=== PATIENT | female | born 1955 | race Caucasian/White ===

== ENCOUNTER 2016-12-06 12:19 | Inpatient (IN) | payer BC, OTHER ==
--- NOTE | 2016-12-06 12:52 | ER Document Report ---
ED Medical Screen (RME) - General Stated Complaint: BACK PAIN Notes: concern for abscess 6 weeks today, was drained 2 days ago and went for check up today and was referred here for surgery eval vitals stable I have greeted and performed a rapid initial assessment of this patient. A comprehensive ED assessment and evaluation of the patient, analysis of test results and completion of the medical decision making process will be conducted by additional ED providers.
[2016-12-06] MEDS ORDERED: NORMAL SALINE 1000 ML 1,000 ML IV ONE (16:52)
--- NOTE | 2016-12-06 18:11 | ER Document Report ---
ED Skin Rash/Insect Bite/Abscs - General Chief Complaint: Boil Stated Complaint: BACK PAIN Mode of Arrival: Ambulatory Information source: Patient, Relative Notes: 61-year-old F presents to the emergency department complaining of persistent abscess/cellulitis to her mid back. Patient reports area of redness and tenderness that started as a small pimple-like area approximately 6 weeks ago which has progressed and increased in size. States was evaluated by her primary care provider Dr. Cassidy 2 days ago who performed I&D and prescribed course of doxycycline which patient states has been taking as directed. Reports had a follow-up appointment with PCP today and was subsequently referred to ED due to persistent symptoms. Reports persistent purulent drainage from area and pain/tenderness. Denies fever or any systemic symptoms. Patient reports history of high blood pressure and NIDDM II but not taking any medications because she states cannot afford them. TRAVEL OUTSIDE OF THE [place] IN LAST 30 DAYS: No - HPI Patient complains to provider of: Tender/swollen area Onset/Duration: Worse Quality of pain: Achy Severity: Moderate Pain Level: 3 Skin Character: Abscess, Erythema, Tenderness, Thickening Skin Temperature: Warm Quality of rash: Painful Similar symptoms previously: Yes Recently seen / treated by doctor: Yes - Related Data Allergies/Adverse Reactions: latex Allergy (Verified 12/06/16 12:50) Past Medical History - General Information source: Patient - Social History Smoking Status: Never Smoker Chew tobacco use (# tins/day): No Frequency of alcohol use: None Drug Abuse: None Lives with: Family Family History: Reviewed & Not Pertinent Patient has suicidal ideation: No Patient has homicidal ideation: No - Past Medical History Cardiac Medical History: Reports: Hx Hypertension Endocrine Medical History: Reports: Hx Diabetes Mellitus Type 2 Renal/ Medical History: Denies: Hx Peritoneal Dialysis Surgical Hx: Negative - Immunizations Hx Diphtheria, Pertussis, Tetanus Vaccination: Yes Review of Systems - Review of Systems Constitutional: No symptoms reported EENT: No symptoms reported Cardiovascular: No symptoms reported Respiratory: No symptoms reported Gastrointestinal: No symptoms reported Genitourinary: No symptoms reported Female Genitourinary: No symptoms reported Musculoskeletal: No symptoms reported Skin: See HPI Hematologic/Lymphatic: No symptoms reported Neurological/Psychological: No symptoms reported -: Yes All other systems reviewed and negative Physical Exam - Vital signs Vitals: Temp Pulse Resp BP Pulse Ox 97.8 F 83 20 154/78 H 97 02/03/17 12:50 12/06/16 12:50 12/06/16 12:50 12/06/16 12:50 12/06/16 12:50 Interpretation: Normal - General General appearance: Appears well, Alert In distress: None - HEENT Head: Normocephalic, Atraumatic Eyes: Normal Pupils: PERRL - Respiratory Respiratory status: No respiratory distress Chest status: Nontender Breath sounds: Normal Chest palpation: Normal - Cardiovascular Rhythm: Regular Heart sounds: Normal auscultation Murmur: No Pulses: Normal: Radial Normal capillary refill: Yes - Abdominal Inspection: Normal Distension: No distension Bowel sounds: Normal Tenderness: Nontender Organomegaly: No organomegaly - Back Back: Normal, Nontender - Extremities General upper extremity: Normal inspection, Nontender, Normal color, Normal ROM , Normal strength, Normal temperature. No: Tender, Edema General lower extremity: Normal inspection, Nontender, Normal color, Normal ROM , Normal strength, Normal temperature, Normal weight bearing. No: Tender, Edema - Neurological Neuro grossly intact: Yes Cognition: Normal Orientation: AAOx4 [place] Coma Scale Eye Opening: Spontaneous [place] Coma Scale Verbal: Oriented [place] Coma Scale Motor: Obeys Commands [place] Coma Scale Total: 15 Speech: Normal Motor strength normal: LUE, RUE, LLE, RLE Sensory: Normal - Psychological Associated symptoms: Normal affect, Normal mood - Skin Skin Temperature: Warm Skin Moisture: Dry Skin Color: Normal Skin Turgor: Elastic Skin irregularity: Abscess - approximately 5 cm diameter area of tenderness, induration, and erythema to mid back with areas of purulent drainage around center., Tender indurated area Course - Re-evaluation Re-evalutation: 12/06/16 18:40 Pt hemodynamically stable, in no distress, afebrile. Discussed patient presentation and findings with surgeon Dr. Lawrence who agrees to consult/evaluate patient in the ED and hospitalist Dr. Conley who agrees to assume care of patient and admit to inpatient medical unit due to comorbidities. Findings and plan discussed with patient and family members who verbalize understanding and agree with plan. ED physician Dr. Pratt consulted and concurs with evaluation and treatment plan. - Vital Signs Vital signs: Temp Pulse Resp BP Pulse Ox 97.8 F 83 20 154/78 H 97 12/06/16 12:50 12/06/16 12:50 12/06/16 12:50 12/06/16 12:50 12/06/16 12:50 - Laboratory Laboratory results interpreted by me: 12/06/16 16:33 POC Glucose 358 H Discharge - Discharge Clinical Impression: Abscess or cellulitis of back Condition: Stable Disposition: ADMITTED INPATIENT Admitting Provider: Hospitalist - Yael Unit Admitted: Medical Floor
[2016-12-06] MEDS ORDERED: VANCOMYCIN HCL 0 MG in DEXTROSE 5%-WATER 250 ML IV NR (18:45)
[2016-12-06] MEDS ORDERED: DEXTROSE 40% GEL 15 GM TUBE PO PRN ×2 (18:58)
[2016-12-06] MEDS ORDERED: DEXTROSE 50%-WATER 25 GM/50 ML DISP.SYRIN IV PRN ×2 (18:58)
[2016-12-06] MEDS ORDERED: GLUCAGON,HUMAN RECOMB 1 MG INJ IM PRN (18:58)
[2016-12-06] MEDS ORDERED: LIDOCAINE 1% INJ-PF (10 MG/ML) 30 ML SDV ONE (19:03)
[2016-12-06 19:24] LABS: ABSOLUTE BASOPHILS # (AUTO) 0.1 10^3/uL (0.0-0.2); ABSOLUTE EOSINOPHILS # (AUTO) 0.4 10^3/uL (0.0-0.6); ABSOLUTE LYMPHOCYTES (AUTO) 2.4 10^3/uL (0.5-4.7); ABSOLUTE MONOCYTES (AUTO) 0.5 10^3/uL (0.1-1.4); ABSOLUTE NEUT (AUTO) 5.8 10^3/uL (1.7-8.2); BASOPHILS % (AUTO) 0.8 % (0-2); EOSINOPHILS % (AUTO) 4.4 % (0-6); HEMATOCRIT 47.2 % (36.0-47.0); HEMOGLOBIN 16.2 g/dL (12.0-15.5); HGB HCT DIFFERENCE 1.4; LYMPHOCYTES % (AUTO) 25.8 % (13-45); MEAN CORPUSCULAR HEMOGLOBIN 29.2 pg (27.0-33.4); MEAN CORPUSCULAR HGB CONC 34.2 g/dL (32.0-36.0); MEAN CORPUSCULAR VOLUME 85 fl (80-97); MONOCYTES % (AUTO) 5.6 % (3-13); RED BLOOD COUNT 5.53 10^6/uL (3.72-5.28); RED CELL DISTRIBUTION WIDTH 13.5 % (11.5-14.0); SEGMENTED NEUTROPHILS % (AUTO) 63.4 % (42-78); WHITE BLOOD COUNT 9.1 10^3/uL (4.0-10.5)
--- NOTE | 2016-12-06 19:25 | PDOC CONSULTATION ---
History of Present Illness History of Present Illness: INGRIS HUTTON is a 61 year old female who noticed a rash which began 6 weeks ago. The rash began in her left antecubital fossa, her bilateral axilla, her bilateral groins, her perineum and her inframammary folds. She also noticed an area of rash in the middle of her back. The rash has continued. The rash is accompanied by itching. She has treated the rash with Gold Venegas powder and hydrocortisone ointment. Generally the rash has improved, although it does persist. Unlike the other areas of the rash, the spot on her back became worse. It became more erythematous, indurated and tender. A mass formed there. It became fluctuant. She went to her doctor 2 days ago. An I&D was performed with expression of copious amounts of purulent material. She was placed on doxycycline, but failed to improve. She still has purulent drainage from the abscess on her back. She still has a large ring of erythema, induration and tenderness. She has not treated her diabetes for 8 years since she lost her insurance. Her blood sugars usually run around 230. Her blood sugar earlier today was 358. In addition to the rash and abscess she has experienced nausea and vomiting. She also reports one week of sinus and cold symptoms. Her family also has upper respiratory illness over the last 2-3 weeks. She reports chronic bilateral lower extremity edema for which she wears compression hose. Past Medical History Cardiac Medical History: Reports: Hypertension Endocrine Medical History: Reports: Diabetes Mellitus Type 2, Other - Diabetic neuropathy Past Surgical History Past Surgical History: Reports: Appendectomy, Hysterectomy - Total hysterectomy with uterus/tubes/ovaries as well as concurrent appendectomy. Social History Information Source: Patient Lives with: Family Smoking Status: Never Smoker Frequency of Alcohol Use: None Hx Recreational Drug Use: No Drugs: None Hx Prescription Drug Abuse: No Family History Family History: CVA, DM, Hyperlipidemia, Hypertension, Malignancy - Ovarian cancer, bile duct cancer, lung cancer., Other - Denies any family or personal history of bleeding disorders, blood clots or anesthesia problems. Parental Family History Reviewed: Yes Children Family History Reviewed: Yes Sibling(s) Family History Reviewed.: Yes Medication/Allergy Allergies/Adverse Reactions: latex Allergy (Verified 12/06/16 12:50) Review of Systems All systems: reviewed and no additional remarkable complaints except as stated Physical Exam Vital Signs: Temp Pulse Resp BP Pulse Ox 97.8 F 83 20 154/78 H 97 12/06/16 12:50 12/06/16 12:50 12/06/16 12:50 12/06/16 12:50 12/06/16 12:50 Intake & Output 12/05/16 12/06/16 12/07/16 06:59 06:59 06:59 Weight 95.8 kg General appearance: PRESENT: no acute distress Head exam: PRESENT: normocephalic Eye exam: PRESENT: EOMI, other Mouth exam: PRESENT: tongue midline Neck exam: PRESENT: JVD, lymphadenopathy, tenderness, thyromegaly Respiratory exam: PRESENT: clear to auscultation zuri Cardiovascular exam: PRESENT: RRR GI/Abdominal exam: PRESENT: soft. ABSENT: distended, rebound, tenderness Extremities exam: PRESENT: +1 edema Neurological exam: PRESENT: alert, oriented to person, oriented to place, oriented to time, oriented to situation Psychiatric exam: PRESENT: appropriate affect, normal mood Skin exam: PRESENT: other - Rash with erythema in the groin folds, axilla, inframammary creases. Abscess with several centimeters of surrounding erythema, induration and tenderness. Abscess cavity itself is at least 8 cm in diameter. There is centrally a small almost healed stab incision with purulent drainage from it. Assessment & Plan - Plan Summary Plan Summary: 1. Uncontrolled diabetes. 2. Diffuse rash. 6 weeks in duration. 3. Back abscess. We discussed incision and drainage. We discussed risks benefits and alternatives including bleeding, infection, damage to surrounding structures, reaction to local anesthetic. She understands and wishes to proceed. She ate at 1 PM. She will not be able to go to the operating room until tomorrow, so this will have to be done at bedside. We will reevaluate tomorrow and see if it is responding or if we need to perform repeat I&D either at bedside or in the OR. Hopefully with antibiotics and blood sugar control and I&D we will see significant improvement.
--- NOTE | 2016-12-06 20:18 | Operative Report ---
Operative Report DATE OF SURGERY: 12/06/16 PREOPERATIVE DIAGNOSIS: Back abscess POSTOPERATIVE DIAGNOSIS: Back abscess OPERATION: Incision and drainage of back abscess SURGEON: SILAS SERRANO ANESTHESIA: Local TISSUE REMOVED OR ALTERED: Wound culture COMPLICATIONS: None noted ESTIMATED BLOOD LOSS: 20 mL INTRAOPERATIVE FINDINGS: Back abscess PROCEDURE: Time out was performed. The patient was prepped and draped in the normal sterile fashion. The skin over the abscess cavity was infiltrated with local anesthetic. A [15] blade was used to excise an ellipse of skin 1 cm in diameter. [There was return of purulent material]. The wound was probed with Q -tips and tracted 1-4 cm circumferentially. A culture was taken and sent to lab for analysis. The cavity was irrigated with hydrogen peroxide. [The cavity was further debrided with gauze]. The cavity was packed with [quarter- inch] iodoform gauze. Dressing was placed over that. Patient tolerated the procedure well. All sharps were counted for and disposed of properly. []
[2016-12-06] MEDS: OXYCODONE-ACETAMINOPHEN 5-325 MG TABLET PO PRN (21:22)
[2016-12-06 21:25] LABS: ALANINE AMINOTRANSFERASE 26 U/L (9-52); ALBUMIN 3.6 g/dL (3.5-5.0); ALKALINE PHOSPHATASE 126 U/L (38-126); ANION GAP 12 (5-19); ASPARTATE AMINO TRANSFERASE 23 U/L (14-36); BILIRUBIN,TOTAL 0.4 mg/dL (0.2-1.3); BLOOD UREA NITROGEN 15 mg/dL (7-20); CARBON DIOXIDE 27 mmol/L (22-30); CHLORIDE 101 mmol/L (98-107); GLUCOSE 268 mg/dL (75-110); SODIUM 139.5 mmol/L (137-145); TOTAL PROTEIN 6.5 g/dL (6.3-8.2)
[2016-12-06] MEDS: VANCOMYCIN HCL 1,000 MG in DEXTROSE 5%-WATER 250 ML IV SCH (23:20)
[2016-12-06] MEDS: INSULIN LISPRO 100 UNIT/ML 3 ML VIAL SUBCUT PRN (23:25)
[2016-12-07] MEDS: OXYCODONE-ACETAMINOPHEN 5-325 MG TABLET PO PRN ×4 (01:09→20:04)
[2016-12-07] MEDS ORDERED: ONDANSETRON HCL INJ/PF 4 MG/2 ML SDV ONE (03:02)
[2016-12-07] MEDS ORDERED: ONDANSETRON HCL INJ/PF 4 MG/2 ML SDV IV ONE (03:15)
[2016-12-07] MEDS: VANCOMYCIN HCL 1,000 MG in DEXTROSE 5%-WATER 250 ML IV SCH ×3 (05:27→22:10)
[2016-12-07] MEDS: INSULIN LISPRO 100 UNIT/ML 3 ML VIAL SUBCUT PRN ×3 (08:43→18:03)
[2016-12-07] MEDS ORDERED: MORPHINE SULFATE 10 MG/ML INJ IV PRN (09:36)
[2016-12-07 09:46] LABS: Direct HDL 31 mg/dL (>40); TRIGLYCERIDES 180 mg/dL (<150)
[2016-12-07 09:56] LABS: DIRECT LDL 73 mg/dL (<100)
[2016-12-07] MEDS ORDERED: METFORMIN HCL 500 MG TABLET PO SCH (10:00)
[2016-12-07] MEDS: ONDANSETRON HCL INJ/PF 4 MG/2 ML SDV IV PRN ×2 (12:45→20:06)
[2016-12-07] MEDS ORDERED: AMLODIPINE BESYLATE 5 MG TABLET PO ONE (14:30)
--- NOTE | 2016-12-07 15:08 | PDOC H&P ---
History of Present Illness Admission Date/PCP: 12/06/16 18:30 History of Present Illness: 61 year old female presents to the emergency department complaining of persistent abscess/cellulitis to her mid back. Patient reports area of redness and tenderness that started as a small pimple-like area approximately 6 weeks ago which has progressed and increased in size. States was evaluated by her primary care provider Dr. Cassidy 2 days ago who performed I&D and prescribed course of doxycycline which patient states has been taking as directed. Reports had a follow-up appointment with PCP today and was subsequently referred to ED due to persistent symptoms. Reports persistent purulent drainage from area and pain/tenderness. Denies fever or any systemic symptoms. Patient reports history of high blood pressure and NIDDM II but not taking any medications because she states cannot afford them. Upon evaluation in the ED patient was diagnosed of a large abscess in the back surrounded by cellulitis A surgical consult was obtained Patient was admitted under hospitalist service for further evaluation and care Past Medical History Cardiac Medical History: Reports: Hypertension Endocrine Medical History: Reports: Diabetes Mellitus Type 1, Diabetes Mellitus Type 2, Other - Diabetic neuropathy Psychiatric Medical History: Reports: Depression Past Surgical History Past Surgical History: Reports: Appendectomy, Hysterectomy - Total hysterectomy with uterus/tubes/ovaries as well as concurrent appendectomy. Social History Lives with: Family Smoking Status: Never Smoker Frequency of Alcohol Use: None Hx Recreational Drug Use: No Drugs: None Hx Prescription Drug Abuse: No - Advance Directive Resuscitation Status: Full Code Family History Family History: CVA, DM, Hyperlipidemia, Hypertension, Malignancy - Ovarian cancer, bile duct cancer, lung cancer., Other - Denies any family or personal history of bleeding disorders, blood clots or anesthesia problems. Parental Family History Reviewed: Yes Children Family History Reviewed: Yes Sibling(s) Family History Reviewed.: Yes Medication/Allergy Home Medications: No Home Medications 12/06/16 Allergies/Adverse Reactions: latex Allergy (Verified 12/06/16 12:50) Review of Systems Constitutional: ABSENT: chills, fever(s), headache(s), weight gain, weight loss Eyes: ABSENT: visual disturbances Ears: ABSENT: hearing changes Cardiovascular: ABSENT: chest pain, dyspnea on exertion, edema, orthropnea, palpitations Respiratory: ABSENT: cough, hemoptysis Gastrointestinal: ABSENT: abdominal pain, constipation, diarrhea, hematemesis, hematochezia, nausea, vomiting Genitourinary: ABSENT: dysuria, hematuria Musculoskeletal: PRESENT: back pain. ABSENT: joint swelling Integumentary: PRESENT: rash, other - Large abscess in the middle of her back surrounded with redness Extreme pain The abscess has been draining slightly. ABSENT: wounds Neurological: ABSENT: abnormal gait, abnormal speech, confusion, dizziness, focal weakness, syncope Psychiatric: ABSENT: anxiety, depression, homidical ideation, suicidal ideation Endocrine: ABSENT: cold intolerance, heat intolerance, polydipsia, polyuria Hematologic/Lymphatic: ABSENT: easy bleeding, easy bruising Physical Exam Vital Signs: Temp Pulse Resp BP Pulse Ox 97.7 F 79 18 178/83 H 100 12/07/16 07:42 12/07/16 07:42 12/07/16 07:42 12/07/16 07:42 12/07/16 07:42 Intake & Output 12/06/16 12/07/16 12/08/16 00:59 00:59 00:59 Intake Total 1367 Balance 1367 Weight 95 kg 95 kg General appearance: PRESENT: no acute distress, well-developed, well-nourished Head exam: PRESENT: atraumatic, normocephalic Eye exam: PRESENT: conjunctiva pink, EOMI, PERRLA. ABSENT: scleral icterus Ear exam: PRESENT: normal external ear exam Mouth exam: PRESENT: moist, tongue midline Neck exam: ABSENT: carotid bruit, JVD, lymphadenopathy, thyromegaly Respiratory exam: PRESENT: clear to auscultation zuri. ABSENT: rales, rhonchi, wheezes Cardiovascular exam: PRESENT: RRR. ABSENT: diastolic murmur, rubs, systolic murmur Pulses: PRESENT: normal dorsalis pedis pul Vascular exam: PRESENT: normal capillary refill GI/Abdominal exam: PRESENT: normal bowel sounds, soft. ABSENT: distended, guarding, mass, organolmegaly, rebound, tenderness Rectal exam: PRESENT: deferred Extremities exam: PRESENT: full ROM. ABSENT: calf tenderness, clubbing, pedal edema Neurological exam: PRESENT: alert, awake, oriented to person, oriented to place , oriented to time, oriented to situation, CN II-XII grossly intact. ABSENT: motor sensory deficit Psychiatric exam: PRESENT: appropriate affect, normal mood. ABSENT: homicidal ideation, suicidal ideation Skin exam: PRESENT: dry, intact, warm, other - Upper back large abscess about 6 cm in diameter surrounded by cellulitis it is fluctuant draining slightly extremely tender on palpation. ABSENT: cyanosis, rash Results Laboratory Results: 12/06/16 18:50 12/06/16 20:51 12/06/16 12/06/16 12/06/16 18:50 18:50 20:51 WBC 9.1 RBC 5.53 H Hgb 16.2 H Hct 47.2 H MCV 85 MCH 29.2 MCHC 34.2 RDW 13.5 Plt Count 334 Seg Neutrophils % 63.4 Lymphocytes % 25.8 Monocytes % 5.6 Eosinophils % 4.4 Basophils % 0.8 Absolute Neutrophils 5.8 Absolute Lymphocytes 2.4 Absolute Monocytes 0.5 Absolute Eosinophils 0.4 Absolute Basophils 0.1 Sodium Cancelled 139.5 Potassium Cancelled 4.0 Chloride Cancelled 101 Carbon Dioxide Cancelled 27 Anion Gap Cancelled 12 BUN Cancelled 15 Creatinine Cancelled 0.50 L Est GFR ( Amer) Cancelled > 60 Est GFR (Non-Af Amer) Cancelled > 60 Glucose Cancelled 268 H Calcium Cancelled 9.0 Total Bilirubin Cancelled 0.4 AST Cancelled 23 ALT Cancelled 26 Alkaline Phosphatase Cancelled 126 Total Protein Cancelled 6.5 Albumin Cancelled 3.6 Triglycerides Cholesterol LDL Cholesterol Direct VLDL Cholesterol HDL Cholesterol TSH 12/07/16 12/07/16 08:54 08:54 WBC RBC Hgb Hct MCV MCH MCHC RDW Plt Count Seg Neutrophils % Lymphocytes % Monocytes % Eosinophils % Basophils % Absolute Neutrophils Absolute Lymphocytes Absolute Monocytes Absolute Eosinophils Absolute Basophils Sodium Potassium Chloride Carbon Dioxide Anion Gap BUN Creatinine Est GFR ( Amer) Est GFR (Non-Af Amer) Glucose Calcium Total Bilirubin AST ALT Alkaline Phosphatase Total Protein Albumin Triglycerides 180 H Cholesterol 135.10 LDL Cholesterol Direct 73 VLDL Cholesterol 36.0 H HDL Cholesterol 31 L TSH 1.92 Assessment & Plan - Diagnosis (1) Uncontrolled diabetes mellitus Qualifiers: Diabetes mellitus type: type 2 Diabetes mellitus complication status: without complication Diabetes mellitus long term care phlebotomist insulin use: without long term care phlebotomist use Qualified Code(s): E11.65 - Type 2 diabetes mellitus with hyperglycemia Is this a current diagnosis for this admission?: YesPlan: Patient does not tolerate metformin we will initiate glipizide 5 mg daily, and order Accu-Cheks before meals at bedtime and coverage with lispro Diabetic teaching also will be requested (2) Hypertension Qualifiers: Hypertension type: essential hypertension Qualified Code(s): I10 - Essential (primary) hypertension Is this a current diagnosis for this admission?: YesPlan: Initiate treatment with Norvasc if needed (3) Abscess or cellulitis of back Is this a current diagnosis for this admission?: YesPlan: Surgical evaluation was obtained Dr. Lawrence performed an I+D in the emergency room We'll treat the patient with vancomycin assuming that she has MRSA infection - Time Time Spent: 50 to 70 Minutes
--- NOTE | 2016-12-07 15:18 | PDOC PROGRESS REPORT ---
Subjective Progress Note for:: 12/07/16 Subjective:: Patient states she's feels a little comfortable ;the pain is still quite severe ; no fever no chills Her blood sugars are in the 200 range Hemoglobin A1c was 11.2 Physical Exam Vital Signs: Temp Pulse Resp BP Pulse Ox 97.7 F 79 18 178/83 H 100 12/07/16 07:42 12/07/16 07:42 12/07/16 07:42 12/07/16 07:42 12/07/16 07:42 Intake & Output 12/06/16 12/07/16 12/08/16 00:59 00:59 00:59 Intake Total 1367 Balance 1367 Weight 95 kg 95 kg General appearance: PRESENT: no acute distress, well-developed, well-nourished Head exam: PRESENT: atraumatic, normocephalic Eye exam: PRESENT: conjunctiva pink, EOMI, PERRLA. ABSENT: scleral icterus Ear exam: PRESENT: normal external ear exam Mouth exam: PRESENT: moist, tongue midline Neck exam: ABSENT: carotid bruit, JVD, lymphadenopathy, thyromegaly Respiratory exam: PRESENT: clear to auscultation zuri. ABSENT: rales, rhonchi, wheezes Cardiovascular exam: PRESENT: RRR. ABSENT: diastolic murmur, rubs, systolic murmur Pulses: PRESENT: normal dorsalis pedis pul Vascular exam: PRESENT: normal capillary refill GI/Abdominal exam: PRESENT: normal bowel sounds, soft. ABSENT: distended, guarding, mass, organolmegaly, rebound, tenderness Rectal exam: PRESENT: deferred Extremities exam: PRESENT: full ROM. ABSENT: calf tenderness, clubbing, pedal edema Neurological exam: PRESENT: alert, awake, oriented to person, oriented to place , oriented to time, oriented to situation, CN II-XII grossly intact. ABSENT: motor sensory deficit Psychiatric exam: PRESENT: appropriate affect, normal mood. ABSENT: homicidal ideation, suicidal ideation Skin exam: PRESENT: warm, other - Abscess containing packing it is not draining There is still significant area of cellulitis surrounding abscess ; skin warm to touch and red Results Laboratory Results: 12/06/16 18:50 12/06/16 20:51 12/06/16 12/06/16 12/06/16 18:50 18:50 20:51 WBC 9.1 RBC 5.53 H Hgb 16.2 H Hct 47.2 H MCV 85 MCH 29.2 MCHC 34.2 RDW 13.5 Plt Count 334 Seg Neutrophils % 63.4 Lymphocytes % 25.8 Monocytes % 5.6 Eosinophils % 4.4 Basophils % 0.8 Absolute Neutrophils 5.8 Absolute Lymphocytes 2.4 Absolute Monocytes 0.5 Absolute Eosinophils 0.4 Absolute Basophils 0.1 Sodium Cancelled 139.5 Potassium Cancelled 4.0 Chloride Cancelled 101 Carbon Dioxide Cancelled 27 Anion Gap Cancelled 12 BUN Cancelled 15 Creatinine Cancelled 0.50 L Est GFR ( Amer) Cancelled > 60 Est GFR (Non-Af Amer) Cancelled > 60 Glucose Cancelled 268 H Calcium Cancelled 9.0 Total Bilirubin Cancelled 0.4 AST Cancelled 23 ALT Cancelled 26 Alkaline Phosphatase Cancelled 126 Total Protein Cancelled 6.5 Albumin Cancelled 3.6 Triglycerides Cholesterol LDL Cholesterol Direct VLDL Cholesterol HDL Cholesterol TSH 12/07/16 12/07/16 08:54 08:54 WBC RBC Hgb Hct MCV MCH MCHC RDW Plt Count Seg Neutrophils % Lymphocytes % Monocytes % Eosinophils % Basophils % Absolute Neutrophils Absolute Lymphocytes Absolute Monocytes Absolute Eosinophils Absolute Basophils Sodium Potassium Chloride Carbon Dioxide Anion Gap BUN Creatinine Est GFR ( Amer) Est GFR (Non-Af Amer) Glucose Calcium Total Bilirubin AST ALT Alkaline Phosphatase Total Protein Albumin Triglycerides 180 H Cholesterol 135.10 LDL Cholesterol Direct 73 VLDL Cholesterol 36.0 H HDL Cholesterol 31 L TSH 1.92 12/06/16 20:05 Gram Stain - Preliminary Back Wound Culture - Preliminary Gram Positive Cocci Clusters Assessment & Plan - Diagnosis (1) Uncontrolled diabetes mellitus Qualifiers: Diabetes mellitus type: type 2 Diabetes mellitus complication status: without complication Diabetes mellitus intermediate frame tender insulin use: without fdc use Qualified Code(s): E11.65 - Type 2 diabetes mellitus with hyperglycemia Is this a current diagnosis for this admission?: YesPlan: We will initiate glipizide. Patient states she is she cannot tolerate metformin Continue lispro coverage Diabetes education Hemoglobin A1c was 11.2 (2) Hypertension Qualifiers: Hypertension type: essential hypertension Qualified Code(s): I10 - Essential (primary) hypertension Is this a current diagnosis for this admission?: YesPlan: Initiate Norvasc 5 mg daily (3) Abscess or cellulitis of back Is this a current diagnosis for this admission?: YesPlan: Continue vancomycin ; we will add ertapenem to broaden the spectrum - Time Time Spent with patient: May consider discharging the patient tomorrow if the cellulitis has resolved; with follow-up at surgical clinic Time Spent with patient: 25-34 minutes
[2016-12-07] MEDS: METOCLOPRAMIDE HCL INJ/PF 10 MG/2 ML SDV IV PRN (16:43)
[2016-12-07] MEDS: GLIPIZIDE 5 MG TABLET PO SCH (16:43)
[2016-12-07] MEDS: ERTAPENEM SODIUM 1 GM in NORMAL SALINE 50 ML IV SCH (18:02)
--- NOTE | 2016-12-07 21:43 | PDOC PROGRESS REPORT ---
Subjective Subjective:: I saw the patient in the morning and later in the evening. Wound has improved significantly. In the morning cleared her for diet since she will not need to proceed to the OR for further debridement. She reports the wound has decreased in pain and overall she feels better. Physical Exam Vital Signs: Temp Pulse Resp BP Pulse Ox 97.6 F 80 15 166/80 H 100 12/07/16 20:00 12/07/16 20:00 12/07/16 20:00 12/07/16 20:00 12/07/16 20:00 Intake & Output 12/06/16 12/07/16 12/08/16 06:59 06:59 06:59 Intake Total 900 1797 Balance 900 1797 Weight 95 kg General appearance: PRESENT: no acute distress Eye exam: PRESENT: EOMI, other - Glasses Mouth exam: PRESENT: tongue midline Respiratory exam: PRESENT: unlabored Skin exam: PRESENT: other - Dressing is removed. The wound is still large but has decreased in induration, erythema and tenderness. There is no obvious purulent drainage. Redressed. Results Laboratory Results: 12/06/16 18:50 12/06/16 20:51 12/07/16 12/07/16 08:54 08:54 Triglycerides 180 H Cholesterol 135.10 LDL Cholesterol Direct 73 VLDL Cholesterol 36.0 H HDL Cholesterol 31 L TSH 1.92 Assessment & Plan - Diagnosis (1) Abscess or cellulitis of back Is this a current diagnosis for this admission?: YesPlan: Definite improvement. Continue daily wound care. No need for further I&D or debridement at this point. Preliminary cultures show gram-positive cocci in clusters. MRSA is suspected based on characteristics of the abscess and wound at the time of I&D. Patient is on vancomycin.
[2016-12-08] MEDS: OXYCODONE-ACETAMINOPHEN 5-325 MG TABLET PO PRN ×4 (06:28→20:56)
[2016-12-08] MEDS: VANCOMYCIN HCL 1,000 MG in DEXTROSE 5%-WATER 250 ML IV SCH (06:29)
[2016-12-08 06:49] LABS: CREATININE RESULT 0.51 mg/dL (0.52-1.25)
[2016-12-08] MEDS: INSULIN LISPRO 100 UNIT/ML 3 ML VIAL SUBCUT PRN ×3 (07:34→17:46)
[2016-12-08] MEDS: GLIPIZIDE 5 MG TABLET PO SCH (07:34)
[2016-12-08] MEDS: METOCLOPRAMIDE HCL INJ/PF 10 MG/2 ML SDV IV PRN ×3 (07:39→21:47)
[2016-12-08] MEDS: ONDANSETRON HCL INJ/PF 4 MG/2 ML SDV IV PRN ×3 (07:40→21:38)
[2016-12-08] MEDS: AMLODIPINE BESYLATE 5 MG TABLET PO SCH (09:47)
[2016-12-08] MEDS ORDERED: FLUCONAZOLE 100 MG TABLET PO ONE (11:00)
[2016-12-08] MEDS ORDERED: NYSTATIN TOPICAL POWDER 15 GM TP ONE (11:00)
[2016-12-08 14:09] LABS: CREATININE RESULT 0.56 mg/dL (0.52-1.25)
--- NOTE | 2016-12-08 14:39 | PDOC PROGRESS REPORT ---
Subjective Progress Note for:: 12/08/16 Subjective:: Patient is still in a great deal of pain and redness swelling still persistent around the abscess in her back Identification and sensitivity of the gram-positive is not available yet Patient is still on vancomycin and ertapenem IV Her blood sugars are quite elevated above 200 And her hemoglobin A1c is 11.4 Physical Exam Vital Signs: Temp Pulse Resp BP Pulse Ox 97.8 F 79 16 150/77 H 100 12/08/16 11:45 12/08/16 11:45 12/08/16 11:45 12/08/16 11:45 12/08/16 11:45 Intake & Output 12/07/16 12/08/16 12/09/16 00:59 00:59 00:59 Intake Total 2697 1420 Balance 2697 1420 Weight 95 kg 95 kg 95 kg General appearance: PRESENT: no acute distress, well-developed, well-nourished Head exam: PRESENT: atraumatic, normocephalic Eye exam: PRESENT: conjunctiva pink, EOMI, PERRLA. ABSENT: scleral icterus Ear exam: PRESENT: normal external ear exam Mouth exam: PRESENT: moist, tongue midline Neck exam: ABSENT: carotid bruit, JVD, lymphadenopathy, thyromegaly Respiratory exam: PRESENT: clear to auscultation zuri. ABSENT: rales, rhonchi, wheezes Cardiovascular exam: PRESENT: RRR. ABSENT: diastolic murmur, rubs, systolic murmur Pulses: PRESENT: normal dorsalis pedis pul Vascular exam: PRESENT: normal capillary refill GI/Abdominal exam: PRESENT: normal bowel sounds, soft. ABSENT: distended, guarding, mass, organolmegaly, rebound, tenderness Rectal exam: PRESENT: deferred Extremities exam: PRESENT: full ROM. ABSENT: calf tenderness, clubbing, pedal edema Neurological exam: PRESENT: alert, awake, oriented to person, oriented to place , oriented to time, oriented to situation, CN II-XII grossly intact. ABSENT: motor sensory deficit Psychiatric exam: PRESENT: appropriate affect, normal mood. ABSENT: homicidal ideation, suicidal ideation Skin exam: PRESENT: dry, intact, warm, other - Back: Abscess is visualized, packed No drainage Cellulitis surrounding the abscess is still present about 6- 8 cm in diameter Extreme tenderness on palpation. 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 Qualified Code(s): E11.65 - Type 2 diabetes mellitus with hyperglycemia Is this a current diagnosis for this admission?: YesPlan: Initiated glipizide by mouth we will increase it to 10 mg twice a day Patient will need some Lantus insulin to control her blood sugars are we will initiate Lantus tonight 20 units subcutaneous at bedtime Initiate diabetic teaching and self administration of insulin (2) Hypertension Qualifiers: Hypertension type: essential hypertension Qualified Code(s): I10 - Essential (primary) hypertension Is this a current diagnosis for this admission?: YesPlan: Still quite elevated Will add Diovan 80 mg daily (3) Abscess or cellulitis of back Is this a current diagnosis for this admission?: Yes - Time Time Spent with patient: Continue the present management Diabetic teaching Self administration of insulin Patient may be discharged in 24-48 hrs if there is clinical improvement Time Spent with patient: 25-34 minutes
--- NOTE | 2016-12-08 14:57 | PDOC PROGRESS REPORT ---
Subjective Subjective:: Reports wound continues to slowly improve. Physical Exam Vital Signs: Temp Pulse Resp BP Pulse Ox 97.8 F 79 16 150/77 H 100 12/08/16 11:45 12/08/16 11:45 12/08/16 11:45 12/08/16 11:45 12/08/16 11:45 Intake & Output 12/07/16 12/08/16 12/09/16 06:59 06:59 06:59 Intake Total 900 2517 1200 Balance 900 2517 1200 Weight 95 kg 95 kg General appearance: PRESENT: no acute distress Eye exam: PRESENT: EOMI, other - Glasses Mouth exam: PRESENT: tongue midline Neurological exam: PRESENT: alert, oriented to situation Psychiatric exam: PRESENT: appropriate affect, normal mood Skin exam: PRESENT: other - Abscess on back has decreased in swelling, erythema and induration. Less tender until wound cares performed, then is painful. Wound Care: Old dressing and packing is removed. The wound is probed with hydrogen peroxide Q-tips. The wound is packed with quarter-inch iodoform gauze. New dressing is placed. Results Laboratory Results: 12/06/16 18:50 12/08/16 13:35 12/08/16 12/08/16 06:05 13:35 Creatinine 0.51 L 0.56 Est GFR ( Amer) > 60 > 60 Est GFR (Non-Af Amer) > 60 > 60 12/06/16 20:05 Back Gram Stain - Final Assessment & Plan - Diagnosis (1) Abscess or cellulitis of back Is this a current diagnosis for this admission?: YesPlan: Healing, but slowly. Continue daily wound care. Continue IV antibiotics per medicine. Spoke with medicine, agree with diabetes control and teaching.
[2016-12-08] MEDS ORDERED: GLIPIZIDE 5 MG TABLET PO SCH (15:00)
[2016-12-08] MEDS: VANCOMYCIN HCL 1,250 MG in DEXTROSE 5%-WATER 250 ML IV SCH ×2 (15:00→21:41)
[2016-12-08] MEDS: GLIPIZIDE 10 MG TABLET PO SCH (17:30)
[2016-12-08] MEDS: ERTAPENEM SODIUM 1 GM in NORMAL SALINE 50 ML IV SCH (17:47)
[2016-12-08] MEDS: NYSTATIN TOPICAL POWDER 15 GM TP SCH (17:49)
[2016-12-08] MEDS: INSULIN GLARGINE,HUM.REC.ANLOG 300 UNIT/3 ML INSULN.PEN SUBCUT SCH (21:36)
[2016-12-08] MEDS ORDERED: INSULIN GLARGINE,HUM.REC.ANLOG 1,000 UNIT/10 ML UNIT SUBCUT SCH (22:00)
[2016-12-09] MEDS: METOCLOPRAMIDE HCL INJ/PF 10 MG/2 ML SDV IV PRN ×2 (06:21→22:35)
[2016-12-09] MEDS: ONDANSETRON HCL INJ/PF 4 MG/2 ML SDV IV PRN ×2 (06:24→22:37)
[2016-12-09] MEDS: VANCOMYCIN HCL 1,250 MG in DEXTROSE 5%-WATER 250 ML IV SCH (06:26)
--- NOTE | 2016-12-09 10:08 | PDOC PROGRESS REPORT ---
Subjective Progress Note for:: 12/09/16 Subjective:: Patient still having pain around debridement site Physical Exam Vital Signs: Temp Pulse Resp BP Pulse Ox 97.7 F 73 16 159/72 H 99 12/09/16 00:18 12/09/16 00:18 12/09/16 00:18 12/09/16 00:18 12/09/16 00:18 Intake & Output 12/08/16 12/09/16 12/10/16 06:59 06:59 06:59 Intake Total 2517 2330 Balance 2517 2330 Weight 95 kg 95 kg General appearance: PRESENT: mild distress Torso Front/Back Image: 1 - The operative debridement site is inspected; packing removed; purulent discharge persisted; perimeter skin very indurated thickened consistent with undrained infection Results Laboratory Results: 12/06/16 18:50 12/08/16 13:35 12/08/16 13:35 Creatinine 0.56 Est GFR ( Amer) > 60 Est GFR (Non-Af Amer) > 60 12/06/16 20:05 Back Gram Stain - Final Assessment & Plan - Diagnosis (1) Abscess or cellulitis of back Is this a current diagnosis for this admission?: YesPlan: 1. Patient has unresolved soft tissue infection of the upper back despite liter debridements. She needs more aggressive minutes and this can be performed in the operating room under LMAC anesthesia 2. We have kept her nothing by mouth, and plan to perform the service later today. - Time Time Spent with patient: 15-24 minutes
[2016-12-09] MEDS: NYSTATIN TOPICAL POWDER 15 GM TP SCH ×2 (11:01→17:13)
[2016-12-09] MEDS: AMLODIPINE BESYLATE 5 MG TABLET PO SCH (11:02)
[2016-12-09] MEDS: VALSARTAN 80 MG TABLET PO SCH (11:04)
[2016-12-09] MEDS: FLUCONAZOLE 100 MG TABLET PO SCH (11:04)
[2016-12-09] MEDS: OXYCODONE-ACETAMINOPHEN 5-325 MG TABLET PO PRN ×3 (11:05→20:09)
[2016-12-09] MEDS: GLIPIZIDE 10 MG TABLET PO SCH ×2 (11:05→15:25)
[2016-12-09] MEDS ORDERED: LIDOCAINE 1% INJ-PF (10 MG/ML) 30 ML SDV ONE (14:06)
[2016-12-09] MEDS: NAFCILLIN SODIUM 1 GM in DEXTROSE 5%-WATER 50 ML IV SCH ×3 (15:02→22:36)
[2016-12-09] MEDS ORDERED: PROPOFOL INJ 200 MG/20 ML VIAL IV ONE (17:14)
[2016-12-09] MEDS ORDERED: DEXMEDETOMIDINE INJ 80 MCG/20 ML VIAL IV ONE (17:14)
[2016-12-09] MEDS ORDERED: FENTANYL CITRATE INJ/PF 100 MCG/2 ML AMPUL ONE (17:14)
[2016-12-09] MEDS ORDERED: MIDAZOLAM 2 MG/2 ML INJ ONE ×2 (17:14)
--- NOTE | 2016-12-09 18:03 | Operative Report ---
Nonrecallable Operative Report DATE OF SURGERY: 12/09/16 PREOPERATIVE DIAGNOSIS: Deep soft tissue abscess of the back POSTOPERATIVE DIAGNOSIS: Same OPERATION: Decisional debridement of skin, subcutaneous tissue and fascia of the back with irrigation of abscess cavity, and placement of Jw drain SURGEON: KRISTOPHER BRIAN ANESTHESIA: LMAC TISSUE REMOVED OR ALTERED: Nonviable skin and subcutaneous tissue COMPLICATIONS: None ESTIMATED BLOOD LOSS: scant INTRAOPERATIVE FINDINGS: see below PROCEDURE: Patient taken to the operating room where LMAC anesthesia was induced. She was placed in the right side down left side up position lateral decubitus on the beanbag. Left upper and mid back prepped and draped sterile fashion. Surgical plan and surgical timeout conducted. Findings were significant for previously drained abscess just to the left of midline in the infrascapular region. There was a hole approximate size of a quarter. Adjacent to this hole bilaterally were 2 near incisions vertically oriented. The tissue was anesthetized with quarter percent Marcaine. After adequate anesthesia was induced, I cored out the old all the way to the deep subcutaneous tissue, and connected it with the patient's right lateral vertically oriented incision. This created a hole approximately 4 cm in diameter, and its depth extended all the way to the fascia of the back. The left lateral incision was opened further with Clarisa clamps and a Jw drain looped through and tied in a square knot to maintain patency of this original counterincision. Loculations in the deep subcutaneous tissues were broken up. This was a deep complex infection involving degeneration of the subcutaneous tissue resembling MRSA ; the wound was irrigated with peroxide and saline, and packed with gauze wrap. 4 x 4's and tape applied. Postop procedure well taken recovery in stable condition; Miguelina dictating on April Ambriz
--- NOTE | 2016-12-09 18:04 | EKG REPORT ---
SEVERITY:- ABNORMAL ECG - SINUS RHYTHM PROBABLE LEFT ATRIAL ABNORMALITY PROBABLE LEFT VENTRICULAR HYPERTROPHY : Confirmed by: Contreras Coulter MD 09-Dec-2016 18:03:36
[2016-12-09] MEDS ORDERED: MORPHINE SULFATE 10 MG/ML INJ IV PRN (18:41)
[2016-12-09] MEDS ORDERED: FENTANYL CITRATE INJ/PF 100 MCG/2 ML AMPUL IV PRN ×3 (18:41)
--- NOTE | 2016-12-09 19:48 | PDOC PROGRESS REPORT ---
Subjective Progress Note for:: 12/09/16 Subjective:: Patient is still in a great deal of pain and redness swelling still persistent around the abscess in her back Patient was evaluated by Dr Mcintyre and was scheduled for drainage abscess in the OR 12/06/16 20:05 Gram Stain - Final Back Wound Culture - Final Staphylococcus Aureus No Anaerobic Organisms Culture grew MSSA sensitive to Oxacillin Physical Exam Vital Signs: Temp Pulse Resp BP Pulse Ox 97.3 F 64 16 130/63 H 99 12/09/16 18:50 12/09/16 18:50 12/09/16 18:50 12/09/16 18:50 12/09/16 18:50 Intake & Output 12/08/16 12/09/16 12/10/16 00:59 00:59 00:59 Intake Total 2697 2320 1770 Output Total 5 Balance 2697 2320 1765 Weight 95 kg 95 kg 95 kg General appearance: PRESENT: no acute distress, well-developed, well-nourished Head exam: PRESENT: atraumatic, normocephalic Eye exam: PRESENT: conjunctiva pink, EOMI, PERRLA. ABSENT: scleral icterus Ear exam: PRESENT: normal external ear exam Mouth exam: PRESENT: moist, tongue midline Neck exam: ABSENT: carotid bruit, JVD, lymphadenopathy, thyromegaly Respiratory exam: PRESENT: clear to auscultation zuri. ABSENT: rales, rhonchi, wheezes Cardiovascular exam: PRESENT: RRR. ABSENT: diastolic murmur, rubs, systolic murmur Pulses: PRESENT: normal dorsalis pedis pul Vascular exam: PRESENT: normal capillary refill GI/Abdominal exam: PRESENT: normal bowel sounds, soft. ABSENT: distended, guarding, mass, organolmegaly, rebound, tenderness Rectal exam: PRESENT: deferred Extremities exam: PRESENT: full ROM. ABSENT: calf tenderness, clubbing, pedal edema Neurological exam: PRESENT: alert, awake, oriented to person, oriented to place , oriented to time, oriented to situation, CN II-XII grossly intact. ABSENT: motor sensory deficit Psychiatric exam: PRESENT: appropriate affect, normal mood. ABSENT: homicidal ideation, suicidal ideation Skin exam: PRESENT: dry, warm, other - back large abscess surrounded by erythema is persistent and tender to palpation. 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 Qualified Code(s): E11.65 - Type 2 diabetes mellitus with hyperglycemia Is this a current diagnosis for this admission?: YesPlan: initiated Lantus continue Diabetic teaching (2) Hypertension Qualifiers: Hypertension type: essential hypertension Qualified Code(s): I10 - Essential (primary) hypertension Is this a current diagnosis for this admission?: YesPlan: continue valsartan and amlodipine BP better controlled (3) Abscess or cellulitis of back Is this a current diagnosis for this admission?: YesPlan: continue Nafcillin IV management as per surgery - Time Time Spent with patient: 15-24 minutes
[2016-12-09] MEDS: INSULIN GLARGINE,HUM.REC.ANLOG 300 UNIT/3 ML INSULN.PEN SUBCUT SCH (22:11)
[2016-12-10] MEDS: KETOROLAC TROMETHAMINE INJ/PF 30 MG/1 ML SDV IV PRN ×4 (00:05→23:06)
[2016-12-10] MEDS: NAFCILLIN SODIUM 1 GM in DEXTROSE 5%-WATER 50 ML IV SCH ×6 (03:05→22:23)
[2016-12-10] MEDS: FLUCONAZOLE 100 MG TABLET PO SCH (09:53)
[2016-12-10] MEDS: AMLODIPINE BESYLATE 5 MG TABLET PO SCH (09:53)
[2016-12-10] MEDS: VALSARTAN 80 MG TABLET PO SCH (09:53)
[2016-12-10] MEDS: OXYCODONE-ACETAMINOPHEN 5-325 MG TABLET PO PRN (09:54)
[2016-12-10] MEDS: GLIPIZIDE 10 MG TABLET PO SCH ×2 (09:54→17:08)
--- NOTE | 2016-12-10 12:37 | PDOC PROGRESS REPORT ---
Subjective Progress Note for:: 12/10/16 Subjective:: She feels much better. Physical Exam Vital Signs: Temp Pulse Resp BP Pulse Ox 97.7 F 75 16 134/60 H 100 12/10/16 03:03 12/10/16 03:03 12/10/16 03:03 12/10/16 03:03 12/10/16 03:03 Intake & Output 12/09/16 12/10/16 12/11/16 06:59 06:59 06:59 Intake Total 2330 1580 Output Total 5 Balance 2330 1575 Weight 95 kg 95 kg General appearance: PRESENT: no acute distress Skin exam: PRESENT: other - Back wound examined; drain in place; cavity with some blood. Perimeter skin erythematous but no purulent discharge. Results Laboratory Results: 12/06/16 18:50 12/08/16 13:35 12/06/16 20:05 Back Gram Stain - Final 12/06/16 20:05 Back Wound Culture - Final Staphylococcus Aureus No Anaerobic Organisms 12/09/16 13:50 Creatine Kinase 41 Assessment & Plan - Diagnosis (1) Abscess or cellulitis of back Is this a current diagnosis for this admission?: YesPlan: 1. Continue intravenous antibiotics today 2. I believe patient can be discharged home tomorrow on dressing changes, [facility] with [facility] for management and dressing changes. Further consultation with surgery on prn Basis
[2016-12-10] MEDS: ONDANSETRON HCL INJ/PF 4 MG/2 ML SDV IV PRN (12:54)
[2016-12-10] MEDS: INSULIN LISPRO 100 UNIT/ML 3 ML VIAL SUBCUT PRN (13:11)
[2016-12-10] MEDS: NYSTATIN TOPICAL POWDER 15 GM TP SCH ×2 (14:33→17:08)
--- NOTE | 2016-12-10 17:16 | PDOC PROGRESS REPORT ---
Subjective Progress Note for:: 12/10/16 Subjective:: Reason for visit: Follow-up MSSA abscess Hospital course: Per H&P "61 year old female presents to the emergency department complaining of persistent abscess/cellulitis to her mid back. Patient reports area of redness and tenderness that started as a small pimple- like area approximately 6 weeks ago which has progressed and increased in size. States was evaluated by her primary care provider Dr. Cassidy 2 days ago who performed I&D and prescribed course of doxycycline which patient states has been taking as directed. Reports had a follow-up appointment with PCP today and was subsequently referred to ED due to persistent symptoms. Reports persistent purulent drainage from area and pain/tenderness. Denies fever or any systemic symptoms. Patient reports history of high blood pressure and NIDDM II but not taking any medications because she states cannot afford them. Upon evaluation in the ED patient was diagnosed of a large abscess in the back surrounded by cellulitis A surgical consult was obtained Patient was admitted under hospitalist service for further evaluation and care" Patient has since undergone surgical incision and drainage of the wound with packing and drain remaining in place. Surgery continues to follow and case discussed with him this morning. He is recommending continued wound care and outpatient wound care after discharge. Subjective: Patient continues to report sharp stabbing waxing and waning pain from the "hole in my back" and is nonradiating and worsened with palpation and dressing changes and improved with rest and narcotics. She denies associated fevers and chills, nausea and vomiting and she is having no diarrhea from the use of the antibiotics. She seems to be tolerating the antibiotics without difficulty. ROS: per HPI plus a total of 10 systems reviewed, pertinent positives and negatives noted above, remaining systems negative. Physical Exam Vital Signs: Temp Pulse Resp BP Pulse Ox 97.7 F 75 16 134/60 H 100 12/10/16 03:03 12/10/16 03:03 12/10/16 03:03 12/10/16 03:03 12/10/16 03:03 Intake & Output 12/09/16 12/10/16 12/11/16 06:59 06:59 06:59 Intake Total 2330 1580 2899 Output Total 5 Balance 2330 1575 2899 Weight 95 kg 95 kg EXAM GENERAL: NAD; well developed, well nourished; no obese; alert and oriented to person, place, time, situation HEENT: normocephalic, atraumatic; no conjunctival injection, no scleral icterus ; oral mucosa moist; RESPIRATORY: no accessory muscle use, no increased WOB, good air entry bilaterally; no wheezes, rales, rhonchi; no inspiratory crackles CARDIO: no JVD; RRR; no systolic murmur; no tachycardia GI: soft; nondistended; normal bowel sounds; no hepato spleno megaly; no rebound, rigidity, guarding VASCULAR: no carotid bruit; no abdominal bruit; no pallor; 2+ radial, DP pulse ; normal capillary refill EXTREMITIES: no calf tender; no palpable cords in calf; no clubbing, cyanosis , pedal edema PSYCH: normal affect, normal mood SKIN: warm; moist; no petechiae; no telengectasias; no jaundice; 2-1/2 cm hole in the left back with plastic drain in place and serosanguineous drainage, there is a reading of induration and erythema around the wound but is well circumscribed and seems contained to the local area. Results Laboratory Results: 12/06/16 18:50 12/08/16 13:35 12/09/16 13:50 Creatine Kinase 41 Imported from system, no new labs to review. Status: Imported from PACS Assessment & Plan - Diagnosis (1) Abscess or cellulitis of back Is this a current diagnosis for this admission?: YesPlan: Continue nafcillin for now, anticipate changed to Amoxil in the morning and hoping for discharge home barring any new events overnight. Case discussed with surgery, he agrees with treatment plan. Is recommending outpatient wound care. (2) Hypertension Qualifiers: Hypertension type: essential hypertension Qualified Code(s): I10 - Essential (primary) hypertension Is this a current diagnosis for this admission?: YesPlan: Reasonably well controlled. Continue current regimen. (3) Uncontrolled diabetes mellitus Qualifiers: Diabetes mellitus type: type 2 Diabetes mellitus complication status: without complication Diabetes mellitus buttermaker helper insulin use: without buttermaker helper use Qualified Code(s): E11.65 - Type 2 diabetes mellitus with hyperglycemia Is this a current diagnosis for this admission?: YesPlan: Blood sugar slightly elevated and worsened by infection but overall trend is less than 200, continue current treatment. - Time Time Spent with patient: 25-34 minutes - Plan Summary Plan Summary: Anticipate discharge home in the morning.
[2016-12-10] MEDS: INSULIN GLARGINE,HUM.REC.ANLOG 300 UNIT/3 ML INSULN.PEN SUBCUT SCH (22:27)
[2016-12-11] MEDS: NAFCILLIN SODIUM 1 GM in DEXTROSE 5%-WATER 50 ML IV SCH ×3 (02:16→10:15)
[2016-12-11] MEDS: KETOROLAC TROMETHAMINE INJ/PF 30 MG/1 ML SDV IV PRN (05:45)
[2016-12-11] MEDS: GLIPIZIDE 10 MG TABLET PO SCH (10:09)
[2016-12-11] MEDS: FLUCONAZOLE 100 MG TABLET PO SCH (10:09)
[2016-12-11] MEDS: VALSARTAN 80 MG TABLET PO SCH (10:10)
[2016-12-11] MEDS: AMLODIPINE BESYLATE 5 MG TABLET PO SCH (10:10)
[2016-12-11] MEDS: NYSTATIN TOPICAL POWDER 15 GM TP SCH (10:15)
[2016-12-11 11:58] VITALS: BP 159/84
--- NOTE | 2016-12-11 18:12 | PDOC DISCHARGE SUMMARY ---
General - Admit/Disc Date/PCP Admission Date/Primary Care Provider: 12/06/16 18:30 Discharge Date: 12/11/16 - Discharge Diagnosis (1) Abscess or cellulitis of back Is this a current diagnosis for this admission?: YesSummary: Okay to continue doxycycline that was previously prescribed prior to her admission of the hospital based on the sensitivities from the culture. She is to follow up with outpatient wound clinic and continue dressing changes at least daily or as the bandage become saturated. Allow the drain to fall out on its own and do not replace or pack the wound, do not cover with any salves or creams. (2) Hypertension Is this a current diagnosis for this admission?: YesSummary: Continue inpatient regimen. Prescriptions provided. (3) Uncontrolled diabetes mellitus Is this a current diagnosis for this admission?: YesSummary: Continue inpatient regimen. Prescriptions provided. - Additional Information Resuscitation Status: Full Code Discharge Diet: Diabetic Discharge Activity: Activity As Tolerated, Balance Activity w/Rest, Slowly Increase Activity Home Medications: Amlodipine Besylate [Norvasc 5 mg Tablet] 5 mg PO DAILY #30 tablet 12/11/16 Doxycycline Hyclate 100 mg PO BID #30 capsule 12/11/16 Fluconazole [Diflucan 100 mg Tablet] 200 mg PO DAILY #14 tablet 12/11/16 Glipizide [Glucotrol 10 mg Tablet] 10 mg PO BIDACBS #60 tablet 12/11/16 Insulin Glargine,Hum.rec.anlog [Lantus Insulin 100 Unit/mL] 20 unit SUBCUT QHS # 1 insuln.pen 12/11/16 Ketorolac Tromethamine [Toradol 10 mg Tablet] 10 mg PO Q6HP PRN #12 tablet 12/11 Tramadol HCl 50 mg PO TIDP PRN #20 tablet 12/11/16 Valsartan [Diovan 80 mg Tablet] 80 mg PO DAILY #30 tablet 12/11/16 History of Present Illness Patient complains of: Pain and swelling in her back History of Present Illness: Hospital course: Per H&P "61 year old female presents to the emergency department complaining of persistent abscess/cellulitis to her mid back. Patient reports area of redness and tenderness that started as a small pimple- like area approximately 6 weeks ago which has progressed and increased in size. States was evaluated by her primary care provider Dr. Cassidy 2 days ago who performed I&D and prescribed course of doxycycline which patient states has been taking as directed. Reports had a follow-up appointment with PCP today and was subsequently referred to ED due to persistent symptoms. Hospital Course Hospital Course: Reports had a follow-up appointment with PCP today and was subsequently referred to ED due to persistent symptoms. Reports persistent purulent drainage from area and pain/tenderness. Denies fever or any systemic symptoms. Patient reports history of high blood pressure and NIDDM II but not taking any medications because she states cannot afford them. Upon evaluation in the ED patient was diagnosed of a large abscess in the back surrounded by cellulitis A surgical consult was obtained Patient was admitted under hospitalist service for further evaluation and care" Patient has since undergone surgical incision and drainage of the wound with packing and drain remaining in place. Surgery continues to follow and case discussed with him this morning. He is recommending continued wound care and outpatient wound care after discharge. Physical Exam Vital Signs: Temp Pulse Resp BP Pulse Ox 97.7 F 75 20 159/84 H 100 12/11/16 11:52 12/11/16 11:52 12/11/16 11:52 12/11/16 11:52 12/11/16 11:52 Intake & Output 12/10/16 12/11/16 12/12/16 06:59 06:59 06:59 Intake Total 1580 3699 Output Total 5 Balance 1575 3699 Weight 95 kg 93.5 kg EXAM GENERAL: NAD; well developed, well nourished; no obese; alert and oriented to person, place, time, situation HEENT: normocephalic, atraumatic; no conjunctival injection, no scleral icterus ; oral mucosa moist; RESPIRATORY: no accessory muscle use, no increased WOB, good air entry bilaterally; no wheezes, rales, rhonchi; no inspiratory crackles CARDIO: no JVD; RRR; no systolic murmur; no tachycardia GI: soft; nondistended; normal bowel sounds; no hepato spleno megaly; no rebound, rigidity, guarding VASCULAR: no carotid bruit; no abdominal bruit; no pallor; 2+ radial, DP pulse ; normal capillary refill EXTREMITIES: no calf tender; no palpable cords in calf; no clubbing, cyanosis , pedal edema PSYCH: normal affect, normal mood SKIN: warm; moist; no petechiae; no telengectasias; no jaundice; 2-1/2 cm hole in the left back with plastic drain in place and serosanguineous drainage, there is a reading of induration and erythema around the wound but is well circumscribed and seems contained to the local area. Results Laboratory Results: 12/06/16 18:50 12/08/16 13:35 12/09/16 13:50 Creatine Kinase 41 Labs reviewed, microbiology reviewed susceptibilities confirmed Status: Imported from PACS - Previous reports reviewed Qualifiers PATEINT BEING DISCHARGED WITH ANY OF THE FOLLOWING DIAGNOSIS?: No VTE patient discharged on overlapping Therapy?: Yes Plan Discharge Plan: Discharge home with continued outpatient wound care, referral to wound care clinic, continue doxycycline, prescription for analgesics provided. She is return to the emergency department for any worsening of her condition including fever greater than 101.5, increased purulent drainage from the wound, increased induration and redness and swelling at the wound, or other systemic symptoms of worsening infection. She states clear understanding with the treatment plan, is in agreement with treatment plan and quite anxious to discharge home. She is to follow up with primary care provider her choice within 1 week. Time Spent: Greater than 30 Minutes
== END 2016-12-11 13:46 | disposition home or self-care (01) | DRG 603 ==
LOC: ER 12:19 → EH 18:30 → 4N 21:12
PROVIDERS: ADMIT Emergency Medicine; ATTEND Emergency Medicine
PROC: 0H96XZX Drainage of Back Skin, External Approach, Diagnostic (ICD-10-PCS; 2016-12-06)
PROC: 0J9700Z Drainage of Back Subcutaneous Tissue and Fascia with Drainage Device, Open Approach (ICD-10-PCS; principal; 2016-12-09 16:15)
DX: L03.312 Cellulitis of back [any part except buttock and flank] (principal); E11.65 Type 2 diabetes mellitus with hyperglycemia; B95.61 Methicillin susceptible Staphylococcus aureus infection as the cause of diseases classified elsewhere; E11.40 Type 2 diabetes mellitus with diabetic neuropathy, unspecified; I10 Essential (primary) hypertension; R52 Pain, unspecified; F32.9 Major depressive disorder, single episode, unspecified; Z91.040 Latex allergy status; Z90.710 Acquired absence of both cervix and uterus; Z90.49 Acquired absence of other specified parts of digestive tract; Z82.49 Family history of ischemic heart disease and other diseases of the circulatory system; Z80.9 Family history of malignant neoplasm, unspecified; Z83.3 Family history of diabetes mellitus; Z59.9 Problem related to housing and economic circumstances, unspecified; Z79.4 Long term (current) use of insulin
CPT/HCPCS: 300; 36415; 80053; 80061; 80202; 82550; 82565; 82962; 83036; 84443; 85025; 87040; 87070; 87075; 87077; 87186; 87205; 93005; 93010; 99284; J1335; J1815; J1885; J2250; J2405; J2704; J2765; J3010; J3370; J3490; J7060

== ENCOUNTER → 2017-01-09 | Outpatient (CLI) | payer SELFPAY ==
[2017-01-09 11:50] LABS: ABSOLUTE BASOPHILS # (AUTO) 0.1 10^3/uL (0.0-0.2); ABSOLUTE EOSINOPHILS # (AUTO) 0.4 10^3/uL (0.0-0.6); ABSOLUTE MONOCYTES (AUTO) 0.5 10^3/uL (0.1-1.4); ABSOLUTE NEUT (AUTO) 4.2 10^3/uL (1.7-8.2); BASOPHILS % (AUTO) 0.7 % (0-2); EOSINOPHILS % (AUTO) 5.3 % (0-6); HEMATOCRIT 40.7 % (36.0-47.0); HEMOGLOBIN 13.9 g/dL (12.0-15.5); MEAN CORPUSCULAR HEMOGLOBIN 29.2 pg (27.0-33.4); MEAN CORPUSCULAR HGB CONC 34.1 g/dL (32.0-36.0); MEAN CORPUSCULAR VOLUME 86 fl (80-97); MONOCYTES % (AUTO) 7.1 % (3-13); RED BLOOD COUNT 4.75 10^6/uL (3.72-5.28); RED CELL DISTRIBUTION WIDTH 14.1 % (11.5-14.0); SEGMENTED NEUTROPHILS % (AUTO) 58.9 % (42-78); WHITE BLOOD COUNT 7.2 10^3/uL (4.0-10.5)
== END ==
LOC: OD 10:36
PROVIDERS: ATTEND Surgery
DX: L02.91 Cutaneous abscess, unspecified (principal)
CPT/HCPCS: 36415; 85025

== ENCOUNTER → 2017-02-24 | Outpatient (CLI) | payer OTHER | LOC: CCC 13:21 | DX: G62.9 Polyneuropathy, unspecified (principal) | CPT/HCPCS: 36415; 82607 ==

== ENCOUNTER → 2017-05-17 | Outpatient (CLI) | payer OTHER ==
[2017-05-17 09:03] LABS: ABSOLUTE EOSINOPHILS # (AUTO) 0.3 10^3/uL (0.0-0.6); ABSOLUTE MONOCYTES (AUTO) 0.4 10^3/uL (0.1-1.4); ABSOLUTE NEUT (AUTO) 4.1 10^3/uL (1.7-8.2); BASOPHILS % (AUTO) 0.7 % (0-2); EOSINOPHILS % (AUTO) 4.1 % (0-6); HEMATOCRIT 39.6 % (36.0-47.0); HEMOGLOBIN 13.3 g/dL (12.0-15.5); HGB HCT DIFFERENCE 0.3; LYMPHOCYTES % (AUTO) 28.8 % (13-45); MEAN CORPUSCULAR HEMOGLOBIN 29.7 pg (27.0-33.4); MEAN CORPUSCULAR HGB CONC 33.6 g/dL (32.0-36.0); MEAN CORPUSCULAR VOLUME 89 fl (80-97); MONOCYTES % (AUTO) 6.2 % (3-13); RED BLOOD COUNT 4.47 10^6/uL (3.72-5.28); RED CELL DISTRIBUTION WIDTH 13.3 % (11.5-14.0); SEGMENTED NEUTROPHILS % (AUTO) 60.2 % (42-78); WHITE BLOOD COUNT 6.9 10^3/uL (4.0-10.5)
[2017-05-17 09:31] LABS: ALANINE AMINOTRANSFERASE 33 U/L (9-52); ALBUMIN 3.8 g/dL (3.5-5.0); ALKALINE PHOSPHATASE 81 U/L (38-126); ANION GAP 9 (5-19); ASPARTATE AMINO TRANSFERASE 19 U/L (14-36); BILIRUBIN,DIRECT 0.2 mg/dL (0.0-0.4); BILIRUBIN,TOTAL 0.5 mg/dL (0.2-1.3); BLOOD UREA NITROGEN 18 mg/dL (7-20); CALCIUM 8.9 mg/dL (8.4-10.2); CARBON DIOXIDE 28 mmol/L (22-30); CHLORIDE 103 mmol/L (98-107); CHOLESTEROL 130.73 mg/dL (0-200); CREATININE RESULT 0.73 mg/dL (0.52-1.25); Direct HDL 37 mg/dL (>40); GLUCOSE 102 mg/dL (75-110); POTASSIUM 4.2 mmol/L (3.6-5.0); SODIUM 140.1 mmol/L (137-145); TOTAL PROTEIN 7.1 g/dL (6.3-8.2); TRIGLYCERIDES 122 mg/dL (<150)
[2017-05-17 09:42] LABS: DIRECT LDL 67 mg/dL (<100)
== END ==
LOC: CCC 08:03
DX: I10 Essential (primary) hypertension (principal)
CPT/HCPCS: 36415; 80053; 80061; 80074; 82272; 83036; 84443; 85025

== ENCOUNTER → 2017-10-07 | Outpatient (CLI) | payer OTHER ==
[2017-10-07 12:56] LABS: ALANINE AMINOTRANSFERASE 32 U/L (9-52); ALBUMIN 3.9 g/dL (3.5-5.0); ALKALINE PHOSPHATASE 106 U/L (38-126); ANION GAP 13 (5-19); ASPARTATE AMINO TRANSFERASE 20 U/L (14-36); BILIRUBIN,DIRECT 0.3 mg/dL (0.0-0.4); BILIRUBIN,TOTAL 0.6 mg/dL (0.2-1.3); BLOOD UREA NITROGEN 15 mg/dL (7-20); CALCIUM 8.9 mg/dL (8.4-10.2); CARBON DIOXIDE 26 mmol/L (22-30); CHLORIDE 106 mmol/L (98-107); CREATININE RESULT 0.57 mg/dL (0.52-1.25); GLUCOSE 105 mg/dL (75-110); POTASSIUM 4.1 mmol/L (3.6-5.0); SODIUM 144.7 mmol/L (137-145); TOTAL PROTEIN 6.8 g/dL (6.3-8.2)
== END ==
LOC: OD 11:00
DX: E08.21 Diabetes mellitus due to underlying condition with diabetic nephropathy (principal); I10 Essential (primary) hypertension
CPT/HCPCS: 36415; 80053; 83036

== ENCOUNTER → 2017-10-09 | Outpatient (CLI) | payer OTHER ==
--- NOTE | 2017-10-09 16:34 | WOMENS IMAGING REPORT ---
EXAM DESCRIPTION: BILAT SCREENING MAMMO W/CAD COMPLETED DATE/TIME: 10/09/2017 2:17 pm REASON FOR STUDY: ROUTINE SCREENING; Z12.31 Z12.31 ENCNTR SCREEN MAMMOGRAM FOR MALIGNANT NEOPLASM O F JENA COMPARISON: None. TECHNIQUE: Standard craniocaudal and mediolateral oblique views of each breast recorded using iConnectivitya l acquisition. LIMITATIONS: None. FINDINGS: RIGHT BREAST MASSES: No suspicious masses. CALCIFICATIONS: No new or suspicious calcifications. ARCHITECTURAL DISTORTION: None. DEVELOPING DENSITY: None. ASYMMETRY: None noted. OTHER: No other significant findings. LEFT BREAST MASSES: Round mass in the upper-outer breast, located 12 cm from the nipple. Fairly smooth margins. CALCIFICATIONS: No new or suspicious calcifications. ARCHITECTURAL DISTORTION: None. DEVELOPING DENSITY: None. ASYMMETRY: None noted. OTHER: No other significant findings. Read with the assistance of CAD. .[facility] - R2 Cenova Version 1.3 .[facility] - R2 Cenova Version 1.3 .[facility] - R2 Cenova Version 2.4 .[facility] R2 Cenova Version 2.4 .[facility] - R2 Education Program Associate Version 9.2 IMPRESSION: Mass in the upper-outer left breast. No worrisome mammographic findings in the right br east. BREAST DENSITY: a. The breasts are almost entirely fatty. BIRAD: 0 Incomplete: Needs Additional Imaging Evaluation and/or prior Mammograms for Comparison. RECOMMENDATION: RECOMMENDED FOLLOW-UP: Recommend additional evaluation with ultrasound of the left b reast. Recommend routine screening mammography of the right breast. The patient will be contacted for additional imaging. COMMENT: The patient has been notified of the results by letter per SA requirements. Additional no tification policies are in place for contacting patient with suspicious or incomplete findings. Quality ID #[id number]: The [employer] recommends an annual screening mammogram for women aged 40 years or over. This facility utilizes a reminder system to ensure that all patients receive reminder letters, and/or direct phone calls for appointments. This includes reminders for routine scr eening mammograms, diagnostic mammograms, or other Breast Imaging Interventions when appropriate. Th is patient will be placed in the appropriate reminder system. The [employer] (ACR) has developed recommendations for screening MRI of the breast s in certain patient populations, to be used in conjunction with mammography. Breast MRI surveillanc e may be appropriate for women with more than 20% lifetime risk of developing breast cancer as deter mined by genetic testing, significant family history of the disease, or history of mantle radiation f or Hodgkins Disease. ACR Practice Guidelines 2008. TECHNICAL DOCUMENTATION: FINDING NUMBER: (1) ASSESSMENT: (1) JOB ID: [id number] [employer]- All Rights Reserved
== END ==
LOC: WI 13:58
DX: Z12.31 Encounter for screening mammogram for malignant neoplasm of breast (principal); N63.21 Unspecified lump in the left breast, upper outer quadrant
CPT/HCPCS: 77067; G0202

== ENCOUNTER → 2017-10-23 | Outpatient (CLI) | payer OTHER ==
--- NOTE | 2017-10-23 16:44 | WOMENS IMAGING REPORT ---
EXAM DESCRIPTION: LEFT DIAGNOSTIC MAMMO W/CAD; U/S BREAST UNILAT LIMITED COMPLETED DATE/TIME: 10/23/2017 10:40 am; 10/23/2017 11:13 am REASON FOR STUDY: UNSPECIFIED LUMP; N63.11; LT BREAST N63.11 N63.21 UNSPECIFIED LUMP IN THE LEFT BR EAST, UPPER OUTER QUAD COMPARISON: Left breast screening mammogram 10/09/2017 TECHNIQUE: Cone compression craniocaudal and mediolateral oblique images of the breast recorded with digital acquisition. Left breast 90 mediolateral view. Left breast ultrasound. LIMITATIONS: None. FINDINGS: BREAST: Left MASSES: In the far upper outer quadrant left breast, a mammographic nodule is present with minimally irregular borders and questionable internal calcifications measuring 8 to 9 mm in diameter. CALCIFICATIONS: No suspicious calcifications elsewhere in the breast. ARCHITECTURAL DISTORTION: None. DEVELOPING DENSITY: None. ASYMMETRY: None noted. OTHER: No other significant findings. Read with the assistance of CAD. .[facility] - R2 Cenova Version 1.3 .[facility] Imaging - R2 Cenova Version 1.3 .[facility] Imaging - R2 Cenova Version 2.4 .[facility] [place] R2 Cenova Version 2.4 .[facility] - R2 Gear Technician Version 9.2 Left breast ultrasound: In the far left upper outer quadrant, 1 to 2 o'clock position the small solid nodule is present about 8 mm in diameter with internal color flow. This is abnormal but nonspecific. This could represent an inflamed lymph node. Fibroadenoma or papilloma are possible. Well-circumscribed malignant nodule is possible. Ultrasound-guided core biopsy and post biopsy clip placement with follow-up two-view m ammogram is recommended. These findings were not discussed with the patient at the time of service IMPRESSION: Right breast nodule far upper outer quadrant, indeterminate for malignancy. Ultrasound- guided core biopsy recommended for follow-up BREAST DENSITY: a. The breasts are almost entirely fatty. BIRAD: 4 Suspicious. Biopsy should be considered. RECOMMENDATION: RECOMMENDED FOLLOW UP: Left breast nodule ultrasound-guided core biopsy with post bi opsy clip placement and follow-up two-view mammogram SPECIFIC INTERVENTION/IMAGING/CONSULTATION RECOMMENDED:As above COMMUNICATION:Patient notified by letter COMMENT: The patient has been notified of the results by letter per MQSA requirements. Additional no tification policies are in place for contacting patient with suspicious or incomplete findings. Quality ID #[id number]: The [employer] recommends an annual screening mammogram for women aged 40 years or over. This facility utilizes a reminder system to ensure that all patients receive reminder letters, and/or direct phone calls for appointments. This includes reminders for routine scr eening mammograms, diagnostic mammograms, or other Breast Imaging Interventions when appropriate. Th is patient will be placed in the appropriate reminder system. The [employer] (ACR) has developed recommendations for screening MRI of the breast s in certain patient populations, to be used in conjunction with mammography. Breast MRI surveillanc e may be appropriate for women with more than 20% lifetime risk of developing breast cancer as deter mined by genetic testing, significant family history of the disease, or history of mantle radiation f or Hodgkins Disease. ACR Practice Guidelines 2008. TECHNICAL DOCUMENTATION: FINDING NUMBER: (1) ASSESSMENT: (1) JOB ID: [id number] [employer]- All Rights Reserved
--- NOTE | 2017-10-23 16:44 | WOMENS IMAGING REPORT ---
EXAM DESCRIPTION: LEFT DIAGNOSTIC MAMMO W/CAD; U/S BREAST UNILAT LIMITED COMPLETED DATE/TIME: 10/23/2017 10:40 am; 10/23/2017 11:13 am REASON FOR STUDY: UNSPECIFIED LUMP; N63.11; LT BREAST N63.11 N63.21 UNSPECIFIED LUMP IN THE LEFT BR EAST, UPPER OUTER QUAD COMPARISON: Left breast screening mammogram 10/09/2017 TECHNIQUE: Cone compression craniocaudal and mediolateral oblique images of the breast recorded with digital acquisition. Left breast 90 mediolateral view. Left breast ultrasound. LIMITATIONS: None. FINDINGS: BREAST: Left MASSES: In the far upper outer quadrant left breast, a mammographic nodule is present with minimally irregular borders and questionable internal calcifications measuring 8 to 9 mm in diameter. CALCIFICATIONS: No suspicious calcifications elsewhere in the breast. ARCHITECTURAL DISTORTION: None. DEVELOPING DENSITY: None. ASYMMETRY: None noted. OTHER: No other significant findings. Read with the assistance of CAD. .[facility] - R2 Cenova Version 1.3 .[facility] Imaging - R2 Cenova Version 1.3 .[facility] - R2 Cenova Version 2.4 .[facility] R2 Cenova Version 2.4 .[facility] - R2 Engineering Illustrator Version 9.2 Left breast ultrasound: In the far left upper outer quadrant, 1 to 2 o'clock position the small solid nodule is present about 8 mm in diameter with internal color flow. This is abnormal but nonspecific. This could represent an inflamed lymph node. Fibroadenoma or papilloma are possible. Well-circumscribed malignant nodule is possible. Ultrasound-guided core biopsy and post biopsy clip placement with follow-up two-view m ammogram is recommended. These findings were not discussed with the patient at the time of service IMPRESSION: Right breast nodule far upper outer quadrant, indeterminate for malignancy. Ultrasound- guided core biopsy recommended for follow-up BREAST DENSITY: a. The breasts are almost entirely fatty. BIRAD: 4 Suspicious. Biopsy should be considered. RECOMMENDATION: RECOMMENDED FOLLOW UP: Left breast nodule ultrasound-guided core biopsy with post bi opsy clip placement and follow-up two-view mammogram SPECIFIC INTERVENTION/IMAGING/CONSULTATION RECOMMENDED:As above COMMUNICATION:Patient notified by letter COMMENT: The patient has been notified of the results by letter per MQSA requirements. Additional no tification policies are in place for contacting patient with suspicious or incomplete findings. Quality ID #225: The [employer] recommends an annual screening mammogram for women aged 40 years or over. This facility utilizes a reminder system to ensure that all patients receive reminder letters, and/or direct phone calls for appointments. This includes reminders for routine scr eening mammograms, diagnostic mammograms, or other Breast Imaging Interventions when appropriate. Th is patient will be placed in the appropriate reminder system. The [employer] (ACR) has developed recommendations for screening MRI of the breast s in certain patient populations, to be used in conjunction with mammography. Breast MRI surveillanc e may be appropriate for women with more than 20% lifetime risk of developing breast cancer as deter mined by genetic testing, significant family history of the disease, or history of mantle radiation f or Hodgkins Disease. ACR Practice Guidelines 2008. TECHNICAL DOCUMENTATION: FINDING NUMBER: (1) ASSESSMENT: (1) JOB ID: [id number] [employer]- All Rights Reserved
== END ==
LOC: WI 10:28
DX: N63.21 Unspecified lump in the left breast, upper outer quadrant (principal)
CPT/HCPCS: 76642; G0206

== ENCOUNTER → 2017-12-04 | Outpatient (CLI) | payer OTHER ==
[~2017-12-04] MED LIST: LIDOCAINE 2% INJ (20 MG/ML) 20 ML MDV ONE
--- NOTE | 2017-12-05 15:36 | WOMENS IMAGING REPORT ---
EXAM DESCRIPTION: U/S BREAST UNILAT LIMITED COMPLETED DATE/TIME: 12/04/2017 11:18 am REASON FOR STUDY: UNSPECIFIED LUMP; N63.20 N63.20 UNSPECIFIED LUMP IN THE LEFT BREAST, UNSPECIFIED QUAD COMPARISON: MAMMOGRAMS 10/23/2017, LEFT BREAST ULTRASOUND 10/23/2017 TECHNIQUE: Real-time and static grayscale imaging performed of the left breast targeted to the area of clinical/mammographic concern. Selected color Doppler images recorded. LIMITATIONS: None. FINDINGS: Patient was originally scheduled for a left breast ultrasound-guided core biopsy for a lucille id nodule at the 1 to 2 o'clock position. Ultrasound was performed by both myself as well as the technologist. In the left breast 1 to 2 o'clock position, an intramammary lymph node is present with central hilar fat. This is well-circumscribed, hypoechoic, with cortex less than 3 mm in thickness. Classic appea henrry for benign intramammary lymph node at sonography. No biopsy was performed today (BI-RADS 2 Be nign findings of). IMPRESSION: Benign left breast intramammary lymph node. BIRAD: 2 Benign findings. RECOMMENDATION: RECOMMENDED FOLLOW-UP: Please continue bilateral screening mammography in October 04 018 COMMENT: The [employer] (ACR) has developed recommendations for screening MRI of the breasts in certain patient populations, to be used in conjunction with mammography. Breast MRI s urveillance may be appropriate for women with more than 20% lifetime risk of developing breast cancer as determined by genetic testing, significant family history of the disease, or history of mantle r adiation for Hodgkins Disease. ACR Practice Guidelines 2008. TECHNICAL DOCUMENTATION: JOB ID: [id number] [employer]- All Rights Reserved
== END ==
LOC: WI 09:24 → EDSTATUS 11:15 → WI 11:20
DX: N63.20 Unspecified lump in the left breast, unspecified quadrant (principal)
CPT/HCPCS: 76642; J3490

== ENCOUNTER → 2017-12-23 | Outpatient (CLI) | payer OTHER ==
--- NOTE | 2017-12-23 09:16 | RADIOLOGY REPORT (SQ) ---
EXAM DESCRIPTION: SHOULDER RIGHT 2 OR MORE VIEWS COMPLETED DATE/TIME: 12/23/2017 8:54 am REASON FOR STUDY: RIGHT SHOULDER PAIN (M25.511) M25.511 PAIN IN RIGHT SHOULDER COMPARISON: None. NUMBER OF VIEWS: Three views. TECHNIQUE: Internal rotation, external rotation, and Y view images acquired of the right shoulder. LIMITATIONS: None. FINDINGS: MINERALIZATION: Normal. BONES: No acute fracture or dislocation. No worrisome bone lesions. JOINTS: No glenohumeral dislocation. No widening at the acromioclavicular joint. Mild AC joint bony spurring. VISUALIZED LUNGS AND RIBS: No pneumothorax. No rib fracture. SOFT TISSUES: No radiopaque foreign body. OTHER: No other significant finding. IMPRESSION: Mild acromioclavicular joint bony spurring. No fracture. No malalignment. TECHNICAL DOCUMENTATION: JOB ID: [id number] [employer]- All Rights Reserved
== END ==
LOC: RAD 08:36
DX: M25.511 Pain in right shoulder (principal)

== ENCOUNTER → 2018-02-17 | Outpatient (CLI) | payer OTHER ==
[2018-02-17 16:31] LABS: ANION GAP 11 (5-19); BLOOD UREA NITROGEN 20 mg/dL (7-20); CALCIUM 9.7 mg/dL (8.4-10.2); CARBON DIOXIDE 29 mmol/L (22-30); CHLORIDE 101 mmol/L (98-107); GLUCOSE 158 mg/dL (75-110); POTASSIUM 3.5 mmol/L (3.6-5.0); SODIUM 141.4 mmol/L (137-145)
== END ==
LOC: CCC 15:26
DX: E11.8 Type 2 diabetes mellitus with unspecified complications (principal); I10 Essential (primary) hypertension
CPT/HCPCS: 36415; 80048

== ENCOUNTER 2018-08-24 08:00 | Day surgery (SDC) | payer SELFPAY ==
[~2018-08-24 08:00] MED LIST changes: +BUPIVACAINE HCL 0.75% INJ/PF (7.5 MG/1 ML) 10 ML SDV OS PRN; +CHONDR SU A NA/HYALUR INTRAOC KIT (SURGICARE) ONE; +EPINEPHRINE INJ/PF 1 MG/1 ML AMPULE ONE; +KETOROLAC TROMETHAMINE 0.45% 4 DROP/0.4 ML DROPERETTE OS PRN; +LIDOCAINE 1% INJ-PF (10 MG/ML) 30 ML SDV ONE; -LIDOCAINE 2% INJ (20 MG/ML) 20 ML MDV ONE; +LIDOCAINE 4% INJ/PF (40 MG/ML) 5 ML AMPUL OS PRN
[2018-08-24] MEDS: TROPICAMIDE 1% OPH SOLN 3 ML OS PRN ×3 (08:30→08:50)
[2018-08-24] MEDS: CYCLOPENTOLATE 0.2%/PHENYLEPHRINE 1% OPH SOLN 2 ML OS PRN ×3 (08:30→08:51)
[2018-08-24] MEDS: BESIFLOXACIN HCL 0.6% OPH SUSP 5 ML BOTTLE OS PRN ×3 (08:31→09:17)
[2018-08-24] MEDS: TETRACAINE HCL 0.5% OPH SOLN 0.6 ML DROPERETTE OS PRN ×2 (08:32→08:51)
[2018-08-24] MEDS ORDERED: MIDAZOLAM 2 MG/2 ML INJ ONE (08:43)
--- NOTE | 2018-08-24 09:36 | [facility] OPERATIVE REPORT E ---
[facility] Operative Report NAME: INGRIS HUTTON AGE: 63Y DATE OF SURGERY: 08/24/2018 ROOM: [facility] [place] Operative Report PREOPERATIVE DIAGNOSIS: CATARACT, LEFT EYE. POSTOPERATIVE DIAGNOSIS: CATARACT, LEFT EYE. PROCEDURE PERFORMED: PHACOEMULSIFICATION WITH POSTERIOR CHAMBER INTRAOCULAR LENS, LEFT EYE. SURGEON: TIFFANI FREGOSO MD ANESTHESIA: TOPICAL WITH MAC. INDICATIONS FOR SURGERY: Difficulty reading road signs. Best corrected visual acuity 20/40. PROCEDURE: The patient was brought to the Operating Room and placed on the operative table. Following tetracaine drops, topical anesthesia was administered. This consisted of instrument wipe pledgets soaked in a solution of 4% Xylocaine mixed with 0.75% Marcaine in a 1:2 ratio. A 2 x 1 cm pledget was placed in the superior fornix. A 1 x 1 cm pledget was placed in the inferior fornix. The eye was patched shut for 5 minutes. The patch was removed. The eye was sterilely prepped and draped in the usual manner. Lid speculum was placed in the eye. The pledgets were removed. 4-0 black silk sutures were placed around the superior and the inferior rectus muscles to be used as traction. A conjunctival peritomy was made at the 10 o'clock position. Hemostasis was obtained with bipolar cautery. A posterior limbal groove was created using a crescent knife and dissected anteriorly towards the cornea. A sharp point blade was used to create a paracentesis site at the 2 o'clock position. A 2.4 mm keratome was used to enter the anterior chamber through the groove. Viscoelastic was injected into the anterior chamber. An anterior capsulotomy was performed using Utrata forceps in a capsulorrhexis fashion. Hydrodissection and hydrodelineation were performed. Phacoemulsification was performed in [id number]-cpm-[id number] technique. A total of 6.05 CDE seconds phaco time was used. Following this, the I/A unit was used to remove residual cortex. Viscoelastic was injected into the capsular bag. Intraocular lens model [id number], 23.5 diopters, serial number [id number] was placed in the capsular bag. The I/A unit was used to remove residual viscoelastic. The wound was seen to be watertight under high and low pressure, and no sutures were placed. The intraocular lens was well centered. The pressure was adjusted in the eye to normal pressure. The 4-0 black silk sutures and lid speculum were removed. The eye was shielded after Besivance drops were placed. The patient tolerated the procedure well and was sent to the Recovery Room in good condition. DICTATING PHYSICIAN: TFIFANI FREGOSO M.D. DICTATING PHYSICIAN: TIFFANI FREGOSO M.D. [id number] PHY#: [id number] ID: [id number] JOB#: [id number] ACCT: [id number] cc:TIFFANI FREGOSO M.D. >
--- NOTE | 2018-08-24 09:36 | [facility] DISCHARGE SUMMARY E ---
[facility] Discharge Summary NAME: INGRIS HUTTON AGE: 63Y ADMITTED: 08/24/2018 DISCHARGED: 08/24/2018 FINAL DIAGNOSIS: CATARACT, LEFT EYE HOSPITAL COURSE: The patient is a 63-year-old lady who underwent uneventful cataract extraction with intraocular lens implant, left eye on 08/24/2018. She will be discharged to home. She is instructed to resume preoperative medications, take Tylenol as needed for discomfort, to keep her eye shielded, to use Durezol, Ilevro, and Vigamox at 3 p.m. and 8 p.m., and to follow up in my office in 1 day. DICTATING PHYSICIAN: TIFFANI FREGOSO M.D. [id number] Y#: [id number] ID: [id number] JOB#: [id number] ACCT: [id number] cc:TIFFANI FREGOSO M.D. >
== END 2018-08-24 10:00 | disposition home or self-care (01) ==
LOC: SC 08:00
PROVIDERS: ATTEND Ophthalmology
DX: H25.813 Combined forms of age-related cataract, bilateral (principal); H35.372 Puckering of macula, left eye; E11.9 Type 2 diabetes mellitus without complications; I10 Essential (primary) hypertension; M19.90 Unspecified osteoarthritis, unspecified site; E66.9 Obesity, unspecified; Z79.899 Other long term (current) drug therapy; Z79.84 Long term (current) use of oral hypoglycemic drugs; Z79.4 Long term (current) use of insulin; Z79.1 Long term (current) use of non-steroidal anti-inflammatories (NSAID); Z91.040 Latex allergy status; Z68.37 Body mass index [BMI] 37.0-37.9, adult
CPT/HCPCS: 66984; 82962; V2632; J2250; J3490 ×4; J0171

== ENCOUNTER → 2018-09-16 | Outpatient (CLI) | payer OTHER ==
[2018-09-16 10:07] LABS: ABSOLUTE BASOPHILS # (AUTO) 0.1 10^3/uL (0.0-0.2); ABSOLUTE EOSINOPHILS # (AUTO) 0.3 10^3/uL (0.0-0.6); ABSOLUTE LYMPHOCYTES (AUTO) 1.8 10^3/uL (0.5-4.7); ABSOLUTE MONOCYTES (AUTO) 0.5 10^3/uL (0.1-1.4); ABSOLUTE NEUT (AUTO) 4.8 10^3/uL (1.7-8.2); EOSINOPHILS % (AUTO) 3.6 % (0-6); HEMATOCRIT 41.2 % (36.0-47.0); HEMOGLOBIN 14.1 g/dL (12.0-15.5); MEAN CORPUSCULAR HEMOGLOBIN 29.2 pg (27.0-33.4); MEAN CORPUSCULAR HGB CONC 34.3 g/dL (32.0-36.0); MEAN CORPUSCULAR VOLUME 85 fl (80-97); MONOCYTES % (AUTO) 6.6 % (3-13); PLATELET COUNT 236 10^3/uL (150-450); RED BLOOD COUNT 4.83 10^6/uL (3.72-5.28); RED CELL DISTRIBUTION WIDTH 13.4 % (11.5-14.0); SEGMENTED NEUTROPHILS % (AUTO) 64.8 % (42-78); TOTAL CELLS COUNTED % (AUTO) 100 %; WHITE BLOOD COUNT 7.4 10^3/uL (4.0-10.5)
[2018-09-16 10:31] LABS: ALANINE AMINOTRANSFERASE 14 U/L (9-52); ALKALINE PHOSPHATASE 105 U/L (38-126); ANION GAP 13 (5-19); ASPARTATE AMINO TRANSFERASE 20 U/L (14-36); BILIRUBIN,DIRECT 0.3 mg/dL (0.0-0.4); BILIRUBIN,TOTAL 0.4 mg/dL (0.2-1.3); BLOOD UREA NITROGEN 16 mg/dL (7-20); CALCIUM 9.2 mg/dL (8.4-10.2); CARBON DIOXIDE 26 mmol/L (22-30); CHLORIDE 104 mmol/L (98-107); CHOLESTEROL 123.88 mg/dL (0-200); GLUCOSE 155 mg/dL (75-110); POTASSIUM 4.1 mmol/L (3.6-5.0); SODIUM 142.8 mmol/L (137-145); TOTAL PROTEIN 7.3 g/dL (6.3-8.2); TRIGLYCERIDES 125 mg/dL (<150)
[2018-09-16 10:41] LABS: DIRECT LDL 66 mg/dL (<100)
== END ==
LOC: OD 09:14
DX: I10 Essential (primary) hypertension (principal); E10.8 Type 1 diabetes mellitus with unspecified complications
CPT/HCPCS: 36415; 80053; 80061; 83036; 84443; 85025